=== PATIENT | female | born 1930 | race Hispanic/Latino ===

== ENCOUNTER 2017-05-06 10:16 | Outpatient (CLI) | payer MEDICARE ==
--- NOTE | 2017-05-06 11:41 | Mammography Report ---
BILATERAL DIGITAL DIAGNOSTIC MAMMOGRAM WITH CAD : 05/06/17 10:16:00 CLINICAL: Breast cancer survivor status post left partial mastectomy and radiation therapy in 2007. COMPARISON:04/09/16 FINDINGS: The breasts are heterogeneously dense, which may obscure small masses. Stable left upper outer postsurgical scar. The left breast is smaller than the right. Stable skin thickening of the left breast. No mass, architectural distortion or suspicious calcifications. IMPRESSION: No mammographic evidence of malignancy. BI-RADS CATEGORY: 2 -- Benign RECOMMENDATION: Routine mammographic screening in one year. Patient follow-up letters are generated via our [employer] application.
== END 2017-05-06 10:17 | disposition home or self-care (01) ==
LOC: SPVWC 10:16
PROVIDERS: ATTEND Internal Medicine Hematology & Oncology
DX: C50.412 Malignant neoplasm of upper-outer quadrant of left female breast (principal); R92.8 Other abnormal and inconclusive findings on diagnostic imaging of breast; Z90.12 Acquired absence of left breast and nipple
CPT/HCPCS: 77066; G0204

== ENCOUNTER 2019-03-26 08:54 | Outpatient (CLI) | payer MEDICARE ==
[2019-03-26 09:45] LABS: Blood Urea Nitrogen 18 mg/dL (7-17)
--- NOTE | 2019-03-26 12:46 | Cat Scan Report ---
CT ABDOMEN AND PELVIS WITH AND WITHOUT CONTRAST HISTORY: Left lower quadrant abdominal pain COMPARISON: None TECHNIQUE: CT images of the abdomen and pelvis were obtained before and following administration of i ntravenous contrast. Oral contrast was administered. CONTRAST: 100 ml of Omnipaque 300. FINDINGS: CT ABDOMEN: Lung Bases: Clear. Liver: No significant abnormality. Biliary: Cholecystectomy has been performed. Spleen: No significant abnormality. Unenlarged. Pancreas: No significant abnormality. Adrenals: No significant abnormality. Kidneys: Mild bilateral renal atrophy and scattered millimetric renal cysts are identified. No obstru ctive uropathy. Lymphatics: No lymphadenopathy. Vasculature: Mild diffuse aortic calcifications. No aneurysm or dissection. Bowel/Peritoneum: There is moderate stool in the colon. No evidence for bowel obstruction or focal in flammation. All triple diverticula are noted in the distal colon. Appendectomy changes are suspected. CT PELVIS: : Hysterectomy. Osseous Structures: No significant abnormality. Additional Findings: None IMPRESSION: No acute process is identified in the abdomen or pelvis. Mild constipation. Diverticulosis of the distal colon. Assumed appendectomy, cholecystectomy and hysterectomy. Signer Name: Garcia Fagan Jr, MD Signed: 03/26/2019 12:42 PM Workstation Name: [id number]
== END 2019-03-26 08:55 | disposition home or self-care (01) ==
LOC: CT 08:54
PROVIDERS: ATTEND Internal Medicine
DX: K57.30 Diverticulosis of large intestine without perforation or abscess without bleeding (principal); K59.00 Constipation, unspecified; Z90.710 Acquired absence of both cervix and uterus
CPT/HCPCS: 36415; 74178; 82565; 84520; Q9967

== ENCOUNTER 2019-05-24 13:49 | Outpatient (CLI) | payer MEDICARE ==
--- NOTE | 2019-05-24 14:40 | Mammography Report ---
DIGITAL SCREENING MAMMOGRAM WITH CAD, 05/24/2019 INDICATION: Routine screening mammography. Cancer survivor status post left partial mastectomy. TECHNIQUE: Digital bilateral 2D mammography was obtained in the craniocaudal and mediolateral obliq ue projections. This examination was interpreted with the benefit of Computer-Aided Detection analysi s. COMPARISON: 05/19/2018 FINDINGS: Breast Density: The breasts are heterogeneously dense, which may obscure small masses. There is no evidence of dominant mass, suspicious calcifications or architectural distortion in eithe r breast. The left breast is smaller than the right. Stable left upper outer benign postsurgical scar with surgical clips. Bilateral benign calcifications, which are mostly benign arterial calcification s. IMPRESSION: No mammographic evidence of malignancy. Follow up recommendation: Routine yearly BI-RADS Category 2: Benign. A "normal" or negative report should not discourage follow up or biopsy of a clinically significant f inding. A written summary of these findings will be mailed to the patient. The patient will be entered into a mammography reporting system which will generate a reminder letter for the patient's next appointmen t at the appropriate interval. The [employer] recommends yearly mammograms starting at age 40 and continuing as l [place] as a woman is in good health. Breast MRI is recommended for women with an approximate 20-25% or greater lifetime risk of breast cancer, including women with a strong family history of breast or ova daniel cancer or who have been treated for Hodgkin's disease. Signer Name: Kevin Mckenna MD Signed: 05/24/2019 2:35 PM Workstation Name: [id number]
== END 2019-05-24 13:50 | disposition home or self-care (01) ==
LOC: SPVWC 13:49
PROVIDERS: ATTEND Internal Medicine Hematology & Oncology
DX: R92.8 Other abnormal and inconclusive findings on diagnostic imaging of breast (principal)
CPT/HCPCS: 77066